=== PATIENT | female | born 1975 | race Hispanic/Latino ===

== ENCOUNTER 2017-09-03 08:29 | Emergency (ER) | payer SELFPAY ==
[2017-09-03] MEDS ORDERED: LIDOCAINE 1% W/EPI 1:100,000 MDV 50 ML VIAL ONE (08:41)
[2017-09-03] MEDS ORDERED: HYDROCODONE/APAP 5/325 MG TAB ONE (08:53)
[2017-09-03 09:31] LABS: Urine Blood TRACE (NEG); Urine Glucose NEGATIVE (NEG); Urine Protein NEGATIVE (NEG); Urine Specific Gravity 1.025 (1.005-1.030); Urine pH 5.5 (5.0-7.0)
--- NOTE | 2017-09-03 11:29 | EDPHYS ---
Physician Documentation [facility] Name: Aracely Riley Age: 41 yrs Sex: Female : 1975 Arrival Date: 09/03/2017 Time: 08:33 Bed 17 Private MD: ED Physician Easton Phillip HPI: 09/03 08:38 This 41 yrs old Female presents to ER via Wheelchair with complaints of Laceration To rh1 Leg. 08:38 The patient has a laceration related to: loading a boat occurred outdoors, and there rh1 are no complicating factors. The injury was accidental. The laceration(s) is(are) located on the lateral aspect of left thigh. Onset: The symptoms/episode began/occurred just prior to arrival. Associated signs and symptoms: Pertinent negatives: deformity, heavy bleeding, loss of consciousness, numbness distal to injury, suspected foreign body. The patient has not experienced similar symptoms in the past. The patient has not recently seen a physician. Reports she was helping to load a boat onto the trailer, she was flipped off the trailer and in the process cut her left leg. She is unsure of exactly what cut the leg, approx. 7 cm deep laceration at left lateral leg. She denies any other injuries.. 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 - Social history:: Smoking status: Patient/guardian denies using tobacco. - Ebola Screening: : Patient denies exposure to infectious person Patient denies travel to an Ebola-affected area in the 21 days before illness onset. ROS: 08:38 Constitutional: Negative for fever rh1 08:38 MS/extremity: Positive for laceration, pain, Negative for decreased range of motion, deformity. 08:38 Skin: Positive for laceration(s). 08:38 Neuro: Negative for numbness, tingling. 08:38 All other systems are negative. Exam: 08:38 Constitutional: This is a well developed, well nourished patient who is awake, alert, rh1 and in no acute distress. Head/Face: Normocephalic, atraumatic. Neck: Trachea midline, and no cervical lymphadenopathy. Supple, full range of motion without nuchal rigidity. No Meningismus. Chest/axilla: Normal chest wall appearance and motion. Nontender with no deformity. No lesions are appreciated. Cardiovascular: Regular rate and rhythm with a normal S1 and S2. No gallops, murmurs, or rubs. No JVD. No pulse deficits. Respiratory: Lungs have equal breath sounds bilaterally, clear to auscultation. No rales, rhonchi or wheezes noted. No increased work of breathing. Abdomen/GI: Soft, non-tender, with normal bowel sounds. No distension. No guarding or rebound. No evidence of tenderness throughout. Back: No spinal tenderness. No costovertebral tenderness. Full range of motion. MS/ Extremity: Pulses equal, no cyanosis. Neurovascular intact. Full, normal range of motion. 08:38 Musculoskeletal/extremity: ROM: full active range of motion, in the right arm, left arm, right leg and left leg, full passive range of motion, in the right arm, left arm, right leg and left leg. 08:38 Skin: injury, laceration(s), the wound is approximately 7 cm(s), with a depth of 1 cm(s), of the lateral aspect of left thigh, that can be described as clean, linear, without bleeding. 08:38 Neuro: Orientation: is normal, to person, place \T\ time. Mentation: is normal, lucid, able to follow commands, Motor: is normal, moves all fours, strength is 5/5 in all extremities, Sensation: is normal, no obvious gross deficits, numbness, is not appreciated, tingling, is not appreciated. Vital Signs: 08:36 BP 153 / 108; Pulse 84; Resp 19; Temp 98.7(O); Pulse Ox 100% on R/A; Weight 54.43 kg; ss Height 4 ft. 11 in. (149.86 cm); Pain 5/10; 09:46 BP 120 / 85; Pulse 75; Resp 16; Pulse Ox 98% on R/A; Pain 5/10; em 10:30 BP 121 / 77; Pulse 74; Resp 18; Pulse Ox 99% on R/A; Pain 5/10; em 11:30 BP 123 / 81; Pulse 72; Resp 16; Pulse Ox 100% on R/A; Pain 4/10; em 08:36 Body Mass Index 24.24 (54.43 kg, 149.86 cm) ss Laceration: 11:24 Wound Repair of 7cm ( 2.8in ) partial thickness laceration to lateral aspect of left rh1 thigh. Linear shaped.. Minimal contamination.. Hemostasis noted.. Distal neuro/vascular/tendon intact. Anesthesia: Wound infiltrated with 15 mls of 1% lidocaine w/ Epi. Wound prep: Extensive cleansing with hibiclenz by sonar technician, Wound irrigation with saline by sonar technician, Copious irrigation. Subcutaneous tissue closed with 2 1-0 chromic using burried. Skin closed with 10 4-0 Prolene using interrupted sutures. Dressed with Bacitracin, 4x4's, non-adherent dressing. Patient tolerated well. MDM: 08:38 Patient medically screened. rh1 11:24 Data reviewed: vital signs, nurses notes, lab test result(s), radiologic studies, plain rh1 films. 11:24 Data interpreted: Pulse oximetry: on room air is 98 %. Counseling: I had a detailed [facility] discussion with the patient and/or guardian regarding: the historical points, exam findings, and any diagnostic results supporting the discharge/admit diagnosis, lab results, radiology results, the need for outpatient follow up, a family practitioner, to return to the emergency department if symptoms worsen or persist or if there are any questions or concerns that arise at home. 09/03 08:48 Order name: Urine Dipstick--Ancillary (enter results) 09/03 08:48 Order name: Urine --Ancillary (enter results) 09/03 08:49 Order name: Urine Dipstick-Ancillary; Complete Time: 09:38 [facility] 09/03 08:49 Order name: Urine --Ancillary; Complete Time: 09:38 [facility] 09/03 09:40 Order name: Femur Left XRAY; Complete Time: 11:54 [facility] 09/03 09:40 Order name: Knee Left 3 View XRAY; Complete Time: 11:54 [facility] 09/03 08:43 Order name: Prolene, Sutures; Complete Time: 08:43 [facility] 09/03 08:43 Order name: Dressing - Wound; Complete Time: 08:43 [facility] 09/03 08:43 Order name: Gloves, Sterile; Complete Time: 08:43 rh1 09/03 08:43 Order name: Setup Suture Tray; Complete Time: 08:43 rh1 09/03 08:43 Order name: Wound Care: please scrub with chlorhexidine and irrigate with 2 L; Complete rh1 Time: 11:49 09/03 08:43 Order name: Urine Test (obtain specimen); Complete Time: 08:48 rh1 09/03 08:43 Order name: Urine Dipstick-Ancillary (obtain specimen); Complete Time: 08:48 rh1 Administered Medications: 08:48 Drug: Lidocaine-Epinephrine -1%: (1:100,000) 1 vials {Note: administered by carmen Davis ROBOTICS TESTING TECHNICIAN.} Volume: 20 ml; Route: Infiltration; Site: wound; 08:55 Drug: [place] 5 mg-325 mg 1 tabs Route: PO; em 11:48 Follow up: Response: No adverse reaction; Pain is decreased em 11:46 Drug: Tetanus-Diphtheria Toxoid Adult 0.5 ml {Field Broomer: [employer]. Exp: em 10/27/2019. Lot #: [id number]. } Route: IM; Site: left deltoid; 11:50 Follow up: Response: Medication administered at discharge. em Disposition: 15:57 Co-signature as Attending Physician, Easton Phillip MD I agree with the assessment and kdr plan of care. Disposition: 09/03/17 11:28 Discharged to Home. Impression: Laceration without foreign body, left lower leg, Contusion of left knee. - Condition is Stable. - Discharge Instructions: Elastic Bandage and RICE, Laceration Care, Adult, Sutured Wound Care, Knee Pain. - Prescriptions for Doxycycline Monohydrate 100 mg Oral Tablet - take 1 tablet by ORAL route every 12 hours for 10 days; 20 tablet. - Medication Reconciliation Form, Thank You Letter, Antibiotic Education, Prescription Opioid Use form. - Follow up: Private Physician; When: 1 - 2 days; Reason: Recheck today's complaints, Continuance of care, Re-evaluation by your physician. Follow up: Emergency Department; When: As needed; Reason: Fever > 102 F, If symptoms return, Trouble breathing, Worsening of condition. - Problem is new. - Symptoms have improved. - Notes: 1. Have your stitches removed in 10 - 14 days. Signatures: Dispatcher [employer] EDEaston Rutherford MD MD kdr Ananth Josue, CIVIL ENGINEER CIVIL ENGINEER em Leah Pavon RN RN ss Susan Tomlin NP ROBOTICS TESTING TECHNICIAN rh1 Corrections: (The following items were deleted from the chart) 12:03 11:28 09/03/2017 11:28 Discharged to Home. Impression: Laceration without foreign body, em left lower leg; Contusion of left knee. Condition is Stable. Forms are Medication Reconciliation Form, Thank You Letter, Antibiotic Education, Prescription Opioid Use. Follow up: Private Physician; When: 1 - 2 days; Reason: Recheck today's complaints, Continuance of care, Re-evaluation by your physician. Follow up: Emergency Department; When: As needed; Reason: Fever > 102 F, If symptoms return, Trouble breathing, Worsening of condition. Problem is new. Symptoms have improved. rh1
--- NOTE | 2017-09-03 11:29 | ER ---
Nurse's Notes [facility] Name: Aracely Riley Age: 41 yrs Sex: Female : 1975 Arrival Date: 09/03/2017 Time: 08:33 Bed 17 Private MD: Diagnosis: Laceration without foreign body, left lower leg;Contusion of left knee Presentation: 09/03 08:34 Presenting complaint: Patient states: fell while loading a boat onto trailer approx 45 ss minutes ago. approx 4 inch laceration noted to lateral aspect of L thigh, just above knee. No bleeding noted at this time. Transition of care: patient was not received from another setting of care. Complicating Factors: Patient reports she may have cut her leg on an oyster or the boat trailer, but is not sure. Onset of symptoms was September 03, 2017. Risk Assessment: Do you want to hurt yourself or someone else? Patient reports no desire to harm self or others. Initial Sepsis Screen: Does the patient meet any 2 criteria? No. Patient's initial sepsis screen is negative. Does the patient have a suspected source of infection? No. Patient's initial sepsis screen is negative. Care prior to arrival: None. 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 - Social history:: Smoking status: Patient/guardian denies using tobacco. - Ebola Screening: : Patient denies exposure to infectious person Patient denies travel to an Ebola-affected area in the 21 days before illness onset. Screenin:42 Abuse screen: Denies threats or abuse. Nutritional screening: No deficits noted. em Tuberculosis screening: No symptoms or risk factors identified. Fall Risk None identified. Assessment: 08:46 General: Appears uncomfortable, Behavior is cooperative, anxious, crying. Pain: em Complains of pain in lateral aspect of left thigh. Neuro: Level of Consciousness is awake, alert, obeys commands, Oriented to person, place, time, situation. Cardiovascular: Capillary refill < 3 seconds Patient's skin is warm and dry. Respiratory: Airway is patent Respiratory effort is even, unlabored, Respiratory pattern is regular, symmetrical. GI: Abdomen is flat. : Urine is cloudy. EENT: No signs and/or symptoms were reported regarding the EENT system. Derm: Wound noted lateral aspect of left thigh. Musculoskeletal: Range of motion: limited in left knee. Injury Description: Laceration sustained to lateral aspect of left thigh is clean, 2.6 to 7.5 cm long, not bleeding, was sustained 30-60 minutes ago. is bleeding a small amount. 09:00 General: The previous assessment is accurate. Call light remains within reach. . 09:47 Reassessment: Patient appears in no apparent distress at this time. Patient and/or em family updated on plan of care and expected duration. Pain level reassessed. c/o left knee/femur pain, has ROM but is painful, pain is unchanged OLMAN Davis. 10:30 Reassessment: Patient appears in no apparent distress at this time. Patient and/or em family updated on plan of care and expected duration. Pain level reassessed. Patient is alert, oriented x 3, equal unlabored respirations, skin warm/dry/pink. 11:30 Reassessment: Patient appears in no apparent distress at this time. Patient and/or em family updated on plan of care and expected duration. Pain level reassessed. Patient is alert, oriented x 3, equal unlabored respirations, skin warm/dry/pink. Vital Signs: 08:36 BP 153 / 108; Pulse 84; Resp 19; Temp 98.7(O); Pulse Ox 100% on R/A; Weight 54.43 kg; Height 4 ft. 11 in. (149.86 cm); Pain 5/10; 09:46 BP 120 / 85; Pulse 75; Resp 16; Pulse Ox 98% on R/A; Pain 5/10; em 10:30 BP 121 / 77; Pulse 74; Resp 18; Pulse Ox 99% on R/A; Pain 5/10; em 11:30 BP 123 / 81; Pulse 72; Resp 16; Pulse Ox 100% on R/A; Pain 4/10; em 08:36 Body Mass Index 24.24 (54.43 kg, 149.86 cm) ED Course: 08:33 Patient arrived in ED. ss 08:36 Triage completed. ss 08:36 Arm band placed on right wrist. ss 08:38 [facility] Tomlin [facility] rh1 08:38 Easton Phillip MD is Attending Physician. rh1 08:39 Ananth Josue LVN is Primary Nurse. em 08:42 Patient has correct armband on for positive identification. Placed in gown. Bed in low em position. Call light in reach. Side rails up X2. Adult w/ patient. 10:31 Femur Left XRAY In Process Unspecified. EDMS 10:31 Knee Left 3 View XRAY In Process Unspecified. EDMS 11:15 Assist provider with laceration repair on lateral aspect of left thigh that was between em 2.6 to 7.5 cm using sutures. Set up tray. Performed by Susan Tomlin CUSTOMER SERVICE CASHIER Dressed with 4X4s, Kerlix, Neosporin, Patient tolerated well. 12:01 Patient did not have IV access during this emergency room visit. em Administered Medications: 08:48 Drug: Lidocaine-Epinephrine -1%: (1:100,000) 1 vials {Note: administered by carmen Davis CUSTOMER SERVICE CASHIER.} Volume: 20 ml; Route: Infiltration; Site: wound; 08:55 Drug: [place] 5 mg-325 mg 1 tabs Route: PO; em 11:48 Follow up: Response: No adverse reaction; Pain is decreased em 11:46 Drug: Tetanus-Diphtheria Toxoid Adult 0.5 ml {Leverman: [employer]. Exp: em 10/27/2019. Lot #: [id number]. } Route: IM; Site: left deltoid; 11:50 Follow up: Response: Medication administered at discharge. em Outcome: 11:28 Discharge ordered by . rh1 12:02 Discharged to home via wheelchair, with family. em 12:02 Condition: good 12:02 Discharge instructions given to patient, family, Instructed on discharge instructions, follow up and referral plans. medication usage, Demonstrated understanding of instructions, follow-up care, medications, Prescriptions given X 1. 12:03 Patient left the ED. em Signatures: Dispatcher [employer] EDAnanth Narvaez LVN LVN em Leah Pavon RN RN Susan Hernandez NP CUSTOMER SERVICE CASHIER 1
[2017-09-03] MEDS ORDERED: TETANUS & DIPHTHERIA TOX,ADULT 0.5 ML VIAL ONE (11:42)
--- NOTE | 2017-09-03 11:51 | RAD REPORT ---
EXAM DESCRIPTION: RAD - Knee Left 3 View - 09/03/2017 10:31 am CLINICAL HISTORY: PAIN Laceration COMPARISON: Femur Left dated 09/03/2017 FINDINGS: Subcutaneous air is present along the lateral aspect of the knee. A radiopaque foreign bod y is not identified. No fracture or dislocation is seen.
--- NOTE | 2017-09-03 11:53 | RAD REPORT ---
EXAM DESCRIPTION: RAD - Femur Left - 09/03/2017 10:31 am CLINICAL HISTORY: PAIN Laceration COMPARISON: No comparisons FINDINGS: No fracture or dislocation seen. No radiopaque foreign body appreciated. Gas along the lat eral aspect of the knee soft tissues suspected be secondary patient's known laceration.
== END 2017-09-03 12:03 | disposition home or self-care (01) ==
LOC: ER 08:29
PROC: 0JQM0ZZ Repair Left Upper Leg Subcutaneous Tissue and Fascia, Open Approach (ICD-10-PCS; principal; 2017-09-03)
DX: S71.112A Laceration without foreign body, left thigh, initial encounter (principal); W19.XXXA Unspecified fall, initial encounter; Y93.89 Activity, other specified; Y92.89 Other specified places as the place of occurrence of the external cause; Z23 Encounter for immunization
CPT/HCPCS: 81003; 81025; 90714; 99284